=== PATIENT | male | born 1980 | race Caucasian/White ===

== ENCOUNTER 2018-10-02 13:01 | Emergency (ER) | payer MEDICARE ==
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
== END 2018-10-02 15:15 | disposition expired ==
LOC: MERGE 14:07 → ER 14:07
DX: S21.301A Unspecified open wound of right front wall of thorax with penetration into thoracic cavity, initial encounter (principal); I46.9 Cardiac arrest, cause unspecified
CPT/HCPCS: 31500; 32551; A7048; G0390; J0171

== ENCOUNTER → 2018-10-02 | Outpatient (CLI) | payer MEDICARE ==
[~2018-10-02] MED LIST: ARIP20TA11 PO; ARIP30TA10 PO; AZIT-18 PO; CEPH250C37 PO; CYCL10TA29 PO; DIV250ER PO; DIVA500T97 PO; HYDR-653 PO; LEVO750T44 PO; LOR75 PO; NAP500 PO; NAPR500T75 PO; PAL9PT PO; ZIPR80CA10 PO
== END ==
LOC: AMB 12:45
PROVIDERS: ATTEND Nurse Practitioner
DX: S21.101A Unspecified open wound of right front wall of thorax without penetration into thoracic cavity, initial encounter (principal); S41.101A Unspecified open wound of right upper arm, initial encounter; R40.20 Unspecified coma; Y35.003A Legal intervention involving unspecified firearm discharge, suspect injured, initial encounter
CPT/HCPCS: A0425; A0433